=== PATIENT | female | born 1980 | race Caucasian/White ===

== ENCOUNTER → 2017-11-12 14:01 | Outpatient (REF) | payer OTHER, SELFPAY ==
[2017-11-12 20:10] LABS: Thyroid Stimulating Hormone 1.57 uIU/ml (0.358-3.740)
== END ==
LOC: LAB 14:01
PROVIDERS: Visit Provider Nurse Practitioner Family
DX: E07.9 Disorder of thyroid, unspecified (principal)
CPT/HCPCS: 84443

== ENCOUNTER → 2017-11-14 10:15 | Outpatient (CLI) | payer OTHER, SELFPAY ==
--- NOTE | 2017-11-14 10:17 | XR_ITS ---
XR elbow RT min 3V HISTORY: ITS.REASON: pain ORDERING PHYSICIAN: Chelo Chadwick PATIENT AGE: 37 years COMPARISON: FINDINGS: BONY STRUCTURES: No fracture or dislocation. No lytic or blastic change. Normal mineralization. SOFT TISSUES: Unremarkable. No radio opaque foreign bodies. No displaced fat pad. JOINT SPACE: Well-preserved. No significant arthritic changes evident. IMPRESSION: Negative elbow.
== END ==
PROVIDERS: PCP Emergency Medicine; Visit Provider Nurse Practitioner Family
DX: M25.521 Pain in right elbow (principal); E07.9 Disorder of thyroid, unspecified
CPT/HCPCS: 73080

== ENCOUNTER → 2020-04-01 15:28 | Outpatient (CLI) | payer OTHER, SELFPAY ==
[2020-04-01 16:01] LABS: Coronavirus 19 IgG Antibody Negative (Negative); Coronavirus 19 IgM Antibody Negative (Negative)
== END ==
PROVIDERS: Visit Provider Nurse Practitioner Family
DX: Z01.84 Encounter for antibody response examination (principal)
CPT/HCPCS: 36415; 86328

== ENCOUNTER → 2020-06-09 10:56 | Outpatient (CLI) | payer OTHER, SELFPAY ==
--- NOTE | 2020-06-09 11:02 | CA_ITS ---
APPROVED REPORT EXAM: Comprehensive 2D, Doppler, and color-flow Echocardiogram Storage Battery Inspector: Freida Yo RVT Ht: 5 ft 4 in Wt: 180lbs BSA: 1.87 BP: 119/66 mmHg Indications: SOA,TACHYCARDIA,PALPS 2D Dimensions LVOT 1.91 cm (M/F) 1.5-2.5 M-Mode Dimensions RVDd 2.29 cm (0.9-2.6) LA Diam 2.98 cm (1.9-4.0) LVDd 4.39 cm (3.5-5.7) Ao Diam 2.26 cm (2.0-3.7) LVDs 3.00 cm (3.5-5.7) IVSd 0.64 cm (0.6-1.1) PWd 0.64 cm (0.6-1.1) EF (Teich) 59.90% FS 31.70% EDV (Teich) 87.20 mL ESV (Teich) 35.00 mL LV Diastology E Decel Time 210.00 (160-240 msec) E/A Ratio 0.9 MED E' 12.60 (< 7 cm/sec) E'/MED E' Ratio 5.34 (>14) LAT E' 16.00 (<10 cm/sec) E/LAT E' Ratio 4.21 (>14) Mitral Valve MV E Max Andrew. 67.00 (40-130 cm/s) MV A Velocity 71.00 (40-130 cm/s) E/A Ratio 0.95 MV Decel. Time 210.00 (160-240 ms) MV PHT 62.00 ms Pulmonary Valve PV Peak Velocity 77.00 (50-150 cm/s) Tricuspid Valve TR P. Velocity 182.00 cm/s Left Ventricle Left atrium is normal size, left ventricle is normal size, there is no concentric left ventricular hypertrophy, visually estimated ejection fraction 55% with no regional wall motion abnormality, diastolic parameters are within normal range. Right Ventricle Right atrium and right ventricle are normal size and contractility. Aortic Valve Aortic valve is grossly normal, there is no aortic stenosis or aortic insufficiency. Mitral Valve Mitral valve is grossly normal, there is trace mitral regurgitation. Tricuspid Valve Tricuspid valve is grossly normal, there is trace tricuspid regurgitation. Pulmonic Valve Pulmonic valve is poorly visualized. Great Vessels Aortic root is normal size. Pericardium No significant pericardial effusion noted. Conclusion 1. Normal left ventricular size, preserved left ventricular systolic function, visually estimated ejection fraction 55% with no regional wall motion abnormality, diastolic parameters are within normal range. 2. Trace mitral and tricuspid regurgitation. 3. No significant pericardial effusion noted. Electronically signed by : Carroll Elizabeth, 06/10/2020 11:23:59
== END ==
PROVIDERS: Visit Provider Physician Assistant
DX: R00.0 Tachycardia, unspecified (principal); R06.02 Shortness of breath
CPT/HCPCS: 93225; 93226; 93306

== ENCOUNTER 2020-06-09 17:07 | Emergency (ER) | payer OTHER, SELFPAY ==
[2020-06-09 17:14] VITALS: BP 133/73; PULSE 98; RESP 20; TEMP 36.7; O2SAT 100; BMI 36.3
--- NOTE | 2020-06-09 17:37 | HMH.EDUTC ---
[facility] Disposition Clinical Impression: Encounter for laboratory testing for COVID-19 virus Otitis media Qualifiers: Otitis media type: unspecified Laterality: right Qualified Code(s): H66.91 - Otitis media, unspecified, right ear Disposition: Home, Self-Care Condition on Discharge: Good Instructions: Middle Ear Infections (Alternative Therapy), Middle Ear Infection, Cefdinir Additional Instructions: *Monitor Temp, Over the counter Motrin or Tylenol as directed/as needed Tylenol every 4 hours and Motrin every 6 hours (as long as your family doctor has told you that you can take it) for fever or pain. and straight to ER if unable to lower temp less than 101.0 after medication given *Warm salt water gargles may help to soothe the throat *Throat Lozenges *Warm fluids like tea with honey may help to soothe the throat *Sleep elevated *Humidifier/Vaporizer *Flonase 2 sprays in each nostril daily but be aware that it may take 2-3 days before you notice improvement *Take medication as prescribed Follow up IMMEDIATELY for new or worsening symptoms or no Noticeable improvement over the next 48-72 hours. 911 for difficulty breathing or swallowing You was tested for today for COVID19 your test result should be back in the next 24-48 hours, you may call to the [facility] later today or tomorrow to see if your test results are back and the result [phone] [facility] hours are 9am-9pm You was given a handout with instructions for Self Quarantine and Self isolation for while you wait on test results and what to do if they are positive If you are positive the Health Dept will be contacting you also Prescriptions: Fluticasone Propionate [Flonase 50mcg nasal spray 16gm] 1 spr NS DAILY #1 bottle Transmission Status: Pending to [facility] Cefdinir [Omnicef 300mg Capsule] 300 mg PO BID #20 cap Transmission Status: Pending to [facility] Benzonatate [Tessalon Perle 100mg Cap*] 100 mg PO TID PRN #15 cap PRN Reason: Cough Transmission Status: Pending to [facility] Referrals: Omega Saldivar MD [Primary Care Provider] - As needed Forms: Work/School Release Time of Disposition: 17:46 Medical Decision Making - Noman Inquiry Pt receiving controlled substance: No Noman was queried for this patient: No Vital Signs: 06/09/20 17:14 Temperature 98.1 F Temperature Source Oral Pulse Rate [Radial] 98 H Respiratory Rate 20 Blood Pressure [Right Arm] 133/73 Blood Pressure Mean [Right Arm] 93 Blood Pressure Source [Right Arm] Automatic Cuff Blood Pressure Position [Right Arm] Sitting 02 Sat by Pulse Oximetry 100 Oxygen Delivery Method Room Air Orders (Tests/Meds): ORDERS Category Date Time Status Full Resp Panel w/COVID ([facility]) Routine Lab 06/09/20 17:36 Ordered Medical Decision Narrative: Patient reports that PCN makes her vomit and listed as allergy but she has taken Keflex and CEfdinir before without reactions or complications [facility] HPI - General Stated complaint: sore throat,cough Time Seen by Provider: 06/09/20 17:37 Mode of Arrival: Ambulatory Source of Information: Patient Limitations: No Limitations Description of Symptoms (Recalled from Triage Doc. by RN): sore throat, earache, cough HEENT Symptoms (Recalled from RN notes): Yes Resp Symptoms (Recalled from RN notes): No Skin Symptoms (Recalled from RN notes): No MS Symptoms (Recalled from RN notes): No Functional Status (Recalled from RN notes): wnl - History of Present Illness Provider Complaint: Patient states that she was seen at a [facility] in [place] and tested for COVID and it was negative after she was exposed to someone that was positive for COVID States that she was given a zpack and she has completed it but still having pain and pressure in her right ear and feeling of fullness in her right sinuses with sore throat States that she feels like her tonsils are swollen State that today she is feeling worse so she come in to get checked again -
[2020-06-09 18:00] LABS: Adenovirus,PCR Not Detected (NotDetected); Bordetella Pertussis Not Detected (NotDetected); Chlamydophila Pneumoniae, PCR Not Detected (NotDetected); Coronavirus 19, PCR Not Detected (NotDetected); Coronavirus 229E Not Detected (NotDetected); Coronavirus NL63 Not Detected (NotDetected); Coronavirus OC43 Not Detected (NotDetected); Coronovirus HKU1,PCR Not Detected (NotDetected); Human Metapneumovirus Not Detected (NotDetected); Influenza A, PCR Not Detected (NotDetected); Influenza AH1, 2009 Not Detected (NotDetected); Influenza AH1, PCR Not Detected (NotDetected); Influenza AH3,PCR Not Detected (NotDetected); Influenza B, PCR Not Detected (NotDetected); Mycoplasma Pneumoniae, PCR Not Detected (NotDetected); Parainfluenza 1, PCR Not Detected (NotDetected); Parainfluenza 2, PCR Not Detected (NotDetected); Parainfluenza 3, PCR Not Detected (NotDetected); Parainfluenza 4, PCR Not Detected (NotDetected); Respiratory Syncytial Virus Not Detected (NotDetected)
[2020-06-09 18:01] VITALS: BP 133/73; PULSE 98; RESP 20; TEMP 36.7; O2SAT 100
[2020-06-09 20:37] LABS: Rhinovirus/Enterovirus Detected (NotDetected)
== END 2020-06-09 18:02 | disposition home or self-care (01) ==
PROVIDERS: Emergency Provider Nurse Practitioner; PCP Emergency Medicine
DX: Z20.828 Contact with and (suspected) exposure to other viral communicable diseases (principal); H66.91 Otitis media, unspecified, right ear; Z88.0 Allergy status to penicillin; E03.9 Hypothyroidism, unspecified
CPT/HCPCS: 87581; 87633; 87798; 99201

== ENCOUNTER → 2020-09-22 12:49 | Outpatient (CLI) | payer OTHER, SELFPAY ==
--- NOTE | 2020-09-22 12:54 | MR_ITS ---
PROCEDURE: MR LUMBAR SPINE WO CON CLINICAL INDICATION: Lbp x1.5months. Rt calf and heel numbness. Pain down rt leg. COMPARISON: No exams were available for comparison TECHNIQUE: Standard multiplanar multiecho sequences are performed without contrast. 3-D MIP and myelographic images are also rendered and reviewed FINDINGS: There is normal alignment. The spinal cord ends at the L1-L2 level. T12-L1: Unremarkable. L1-L2: Incidental lipoma involves the right aspect of the L1 vertebral body at 11 mm. The disc space is unremarkable. L1-L2: Unremarkable. L2-L3: Unremarkable. L4-5: Unremarkable. L5-S1: Unremarkable. 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 IMPRESSION: Essentially negative MRI of the lumbar spine Dictated by: Luis Miguel Ahuja MD 09/23/2020 15:43 Luis Miguel Ahuja MD in [place] 09/23/2020 15:43
== END ==
PROVIDERS: PCP Emergency Medicine; Visit Provider Physician Assistant
DX: M54.16 Radiculopathy, lumbar region (principal)
CPT/HCPCS: 72148; 76376